=== PATIENT | female | born 1960 | race Caucasian/White ===

== ENCOUNTER → 2020-09-16 09:50 | Outpatient (CLI) | payer OTHER, SELFPAY ==
--- NOTE | 2020-09-16 | PATH_ITS ---
Note [facility] Accession Number: [id number] TESTS RESULT FLAG UNITS REF RANGE LAB Clinician Provided Cytology Information No. of containers..00 Previously Prepared Cytology Slide 35 Unknown Storage/container code(s) 01 LEFT THYROID MASS Clinician ICD10: E04.1 DIAGNOSIS: 01 LEFT THYROID MASS NEGATIVE FOR MALIGNANT CELLS. [place] CATEGORY II. SPECIMEN CONSISTS OF BENIGN FOLLICULAR CELLS, PRESENT AT MACROFOLLICLES, CONSISTENT WITH A BENIGN FOLLICULAR NODULE. Pathologist ICD10: E04.1 01 Procedure: Thyroid ultrasound Findings: Right thyroid lobe neasures 5,9 x 22 x 2.4 cm. Tiny lateral neasuring 0.3 cm. The left thyroid lobe measures 5.9 x 2.1 x 22 cm. There Is a nodule within frie left thyroid lobe. that is predominantly solid (2) measuring 1.6 x x 1.6 cm. It is heterogeneous but slightly hypoechoic (2), wider than tall (0),with smooth marrgins (O) and no calcifications (O) (TR 4). The isthmus measures 0.6 cm. No other thyroid nodules identified. No suspicious masses or abnormal enlarged lymph nodes in the overlying soft tissues. IMPRESSION: 1.6 cm predominantly solid nodule within the left thyroid lobe (TR 4). Fine-needle aspirate suggested as per ACR recommendations. 01 Elsy Warren MD, Pathologist NPI- [id number] 01 Alphonse Bryan, Patient Ambassador ([facility]) 01 30 CC, RED, CLEAR RECIEVED: IN CYTOLYT WITH 5 ALCOHOL FIXED AND 5 QUICK STAINED SLIDES ALSO 1 RNA VIAL WAS RECEIVED FOR FURTHER TESTING. /[facility] 09/17/2020 0628 Local FLAG LEGEND: L-Low Normal,H-High Normal,LL-Alert Low,HH-Alert High <-Panic Low,>-Panic High,A-Abnormal,AA-Critical Abnormal Performed at: 01 =[facility] [address] [place] [address] [address], [place] [address] Luke Marcano MD, Performed at: 01 [facility] [address] [place] [address] [address], [place], [place] [id number] MD Luke Marcano MD Phone: [phone]
--- NOTE | 2020-09-16 | DI.US.S_ITS ---
PROCEDURE: US FINE NEEDLE ASPIRATION INDICATIONS: LEFT THYROID NODULE TECHNIQUE: The indications, alternatives, benefits, risks, and complications of the procedure were explained to the patient. Written informed consent was obtained and placed in the chart. The thyroid region was examined sonographically and a site was chosen for ultrasound guided percutaneous sampling. The skin was prepared and draped in the usual fashion, and anesthetized with 1% lidocaine infiltrated from the skin down to the thyroid gland. Multiple passes were then performed, with contents emptied into an appropriate pathology specimen container. A bandage was applied to the area of access at completion of the study. COMPARISON: None. FINDINGS: Location(s) of lesion(s) sampled: Left thyroid lobe [place]: 25 gauge hypodermic needles. Number of passes: 6 Medications: 1% lidocaine for local anaesthesia. Complications: None. IMPRESSION: Successful ultrasound-guided thyroid nodule fine needle aspiration, with cytology results pending. Please see chart below for management recommendations based on cytology results. [place] [facility] ReportingRecommendationsNon-diagnostic* Repeat US-guided FNA, with on-site cytology evaluation if possible. * Repeated non-diagnostic nodules without high suspicion US features: close observation vs surgical consult. * Consider surgery if nodule has high suspicion US features, grows >20% in 2 dimensions on followup, or patient has clinical risk factors for malignancy. Benign* If nodule has high suspicion US features: repeat US and FNA within 12 months. * If nodule has low to intermediate suspicion US features: repeat US at 12-24 months. If nodule grows (20% increase in at least 2 dimensions, with minimal increase of 2 mm or >50% change in volume), or development of new suspicious US features, then repeat FNA or continue followup. * If nodule has very low suspicion US features: followup US at >24 months. Atypia of undetermined significance, follicular lesion of undetermined significanceRepeat FNA, molecular testing, followup US, or surgical consult.Follicular neoplasm, suspicious for follicular neoplasmSurgical consult; also consider molecular testing. Suspicious for malignancySurgical consult.MalignantSurgical consult. Dictated by: Roberth Parra M.D. on 09/16/2020 at 14:22 Approved by: Roberth Parra M.D. on 09/16/2020 at 14:22
== END ==
PROVIDERS: Family Provider Naturopath; PCP Naturopath; Referring Provider Internal Medicine; Visit Provider Internal Medicine
DX: E04.1 Nontoxic single thyroid nodule (principal)
CPT/HCPCS: 10005

== ENCOUNTER → 2023-05-08 10:52 | Outpatient (CLI) | payer OTHER, SELFPAY ==
--- NOTE | 2023-05-08 | DI.MRI.S_ITS ---
PROCEDURE: MR KNEE RT WO CON INDICATIONS: RIGHT KNEE PAIN/MEDIAL COLLATERAL LIGAMENT INJURY TECHNIQUE: Noncontrast sagittal PD fast spin echo and T2 fast spin echo with fat saturation, sagittal 3-D FLASH with fat saturation; coronal T1 spin echo and PD fast spin echo with fat saturation, and axial PD fast spin echo with fat saturation through the knee. COMPARISON: None. FINDINGS: Image quality: Excellent. Menisci: Peripheral displacement of medial meniscus bowing medial collateral ligament is seen. Complex oblique tear involving posterior horn of medial meniscus is seen extending to superior articulating surface. Low-grade partial-thickness tear involving posterior medial meniscal root ligament is also seen. The lateral meniscus is intact. Cruciate ligaments: The anterior and posterior cruciate ligaments appear intact. Medial structures: The medial collateral ligament appears mildly thickened. The posterior oblique ligament, semimembranosus tendon insertions, oblique popliteal ligament, and meniscocapsular junction appear intact. Visualized portions of the pes anserinus tendons appear normal. No abnormal bursal fluid. Lateral structures: The lateral collateral ligament, long and short heads of the biceps femoris tendon appear intact. The popliteus tendon is thickened suggestive of tendinosis. Iliotibial band appears normal. Anterior structures: The quadriceps and patellar tendons appear intact. Patellar alignment is normal. No femoral trochlear dysplasia or ventral trochlear prominence. No edema in the infrapatellar fat pad. Bones and cartilage: No bone marrow contusions or fractures. [id number] tricompartmental osteoarthritis and chondromalacia is seen more notably in medial femoral tibial compartment. Joint space: There is moderate to large knee joint fluid. There is a 1.6 x 1.7 x 3.7 cm Hernandez's cyst. Normal appearing synovial plicae are incidentally noted. IMPRESSION: 1. Complex oblique tear involving posterior horn of medial meniscus extending to superior articulating surface. Low-grade partial-thickness tear involving posterior medial meniscal root ligament. The lateral meniscus is intact. 2. The cruciate ligaments are intact. 3. Low-grade MCL sprain. Proximal popliteus tendinosis. 4. [id number] tricompartmental osteoarthritis and chondromalacia most notably in medial femoral tibial compartment. No fracture or dislocation. 5. Moderate to large joint effusion and a small Hernandez's cyst as above. No gross loose bodies. Dictated by: Kwaku Rodriguez M.D. on 05/08/2023 at 13:25 Approved by: Kwaku Rodriguez M.D. on 05/08/2023 at 13:27
== END ==
PROVIDERS: Family Provider Naturopath; PCP Naturopath; Referring Provider Orthopaedic Surgery; Visit Provider Orthopaedic Surgery
DX: S83.231A Complex tear of medial meniscus, current injury, right knee, initial encounter (principal); S83.411A Sprain of medial collateral ligament of right knee, initial encounter; M17.11 Unilateral primary osteoarthritis, right knee; M94.261 Chondromalacia, right knee; M25.561 Pain in right knee; M25.461 Effusion, right knee; M71.21 Synovial cyst of popliteal space [Baker], right knee
CPT/HCPCS: 73721

== ENCOUNTER → 2023-06-21 10:12 | Outpatient (CLI) | payer OTHER, SELFPAY | PROVIDERS: Family Provider Naturopath; PCP Naturopath; Referring Provider Orthopaedic Surgery; Visit Provider Orthopaedic Surgery | DX: Z01.818 Encounter for other preprocedural examination (principal) | CPT/HCPCS: 93005; 93010 ==

== ENCOUNTER → 2024-10-18 10:16 | Outpatient (CLI) | payer OTHER, SELFPAY ==
--- NOTE | 2024-10-18 10:18 | DI.MRI.S_ITS ---
PROCEDURE: MR SHOULDER LT WO CON INDICATIONS: Strain of tendon of left shoulder TECHNIQUE: Noncontrast oblique coronal T2 fast spin echo with fat saturation, oblique sagittal T1 spin echo and T2 fast spin echo with fat saturation, axial T1 spin echo and T2 fast spin echo with fat saturation through the shoulder. COMPARISON: [facility], CR, XR SHOULDER 2+ VIEWS LEFT, 08/02/2024, 13:45. FINDINGS: Image quality: Diagnostic Rotator cuff: Bulk: No significant atrophy Teres minor: Intact Supraspinatus: Moderate tendinopathy and partial-thickness articular sided tears in the mid and distal tendon. Small bursal sided defect also seen near the insertion. Infraspinatus: Moderate tendinopathy and small articular sided defects are seen. Subscapularis: There is moderate to severe thickening. Small partial-thickness defect seen at along the articular surface Bones and bursae: GH joint: There is significant joint effusion and advanced degenerative changes. Intra-articular debris is present. Effusion extends to the anterior bursal spaces. Advanced cartilage loss and subchondral geodes are present. AC joint: [id number]-px-qymlympx degenerative changes Humeral head: Likely reactive edema is seen in parts of the humeral head. Questionable posterior humeral head deformity is present Scapula and acromion: Likely reactive edema along the glenoid Bursa: Mild bursal edema Capsule: Labrum: Diffusely attenuated. Suspected superior labral tear also seen Long head biceps tendon: Intra-articular tendinopathy is seen. Joint effusion extends along the bicipital groove IGHL: Axillary pouch is distended with fluid Rotator interval: Distended with edema Soft tissues: No axillary adenopathy. Lungs are not well seen. IMPRESSION: Advanced degenerative changes of the glenohumeral joint with significant cartilage loss and subchondral geodes/edema. There is a moderate joint effusion with intra-articular debris, also extending to the bursal spaces and bicipital groove. Mild to moderate acromioclavicular degenerative changes. Possible posterior humeral head deformity, possibly degenerative or from prior trauma for example from dislocation. Diffuse attenuation of the labrum, likely degenerative . Possible superior labral tear. Adjacent long head biceps tendinopathy. Overall moderate grade tendinopathy and partial-thickness tears of the rotator cuff Dictated by: Juan Solomon M.D. on 10/19/2024 at 6:36 Approved by: Juan Solomon M.D. on 10/19/2024 at 6:42
== END ==
LOC: MRI 10:17
PROVIDERS: Family Provider Naturopath; PCP Naturopath; Referring Provider Orthopaedic Surgery; Visit Provider Orthopaedic Surgery
DX: S46.012A Strain of muscle(s) and tendon(s) of the rotator cuff of left shoulder, initial encounter (principal); M25.412 Effusion, left shoulder; X58.XXXA Exposure to other specified factors, initial encounter
CPT/HCPCS: 73221

== ENCOUNTER → 2024-12-02 10:12 | Outpatient (CLI) | payer OTHER, SELFPAY ==
--- NOTE | 2024-12-02 10:14 | DI.MRI.S_ITS ---
PROCEDURE: MR KNEE LT WO CON INDICATIONS: Cyst lt knee TECHNIQUE: Noncontrast sagittal PD fast spin echo and T2 fast spin echo with fat saturation, sagittal 3-D FLASH with fat saturation; coronal T1 spin echo and PD fast spin echo with fat saturation, and axial PD fast spin echo with fat saturation through the knee. COMPARISON: [facility] [place], RG, KNEE MIN 4VW (LT), 10/28/2024, 11:31. [facility], MR, MR KNEE RT WO CON, 05/08/2023, 11:22. FINDINGS: Image quality: Excellent. Menisci: In the medial meniscus, there is complex tear of the posterior horn, extending to the meniscus body. Marked extrusion of the medial meniscus body. There is a small parameniscal cyst about the posterior horn. In the lateral meniscus, there is a mildly complex tear with predominant horizontal component in the posterior horn, extending into the meniscus body. No extrusion of the medial meniscus body. Cruciate ligaments: The anterior and posterior cruciate ligaments appear intact. Medial structures: The medial collateral ligament appears intact. The posterior oblique ligament, semimembranosus tendon insertions, oblique popliteal ligament, and meniscocapsular junction appear intact. Visualized portions of the pes anserinus tendons appear normal. No abnormal bursal fluid. Lateral structures: The lateral collateral ligament, long and short heads of the biceps femoris tendon appear intact. The popliteus tendon appears normal; the popliteofibular ligament appears intact. The posterosuperior and anteroinferior popliteomeniscal fascicles appear intact. The arcuate and fabellofibular ligaments appear intact, on either side of the lateral inferior geniculate artery. Iliotibial band appears normal. Anterior structures: The quadriceps tendon is unremarkable. Mild tendinosis of the proximal patellar tendon. Mild lateral tilt of the patella. The medial and the lateral patellofemoral ligaments are intact. Bones and cartilage: Multifocal mild chondral irregularity of the patella, with mild subchondral marrow edema. Mild chondral irregularity of the medial trochlea. In the medial compartment, there is large area of complete chondral denudation in the weight-bearing portion of the medial femoral condyle, and in the medial tibial plateau. There is mild subchondral marrow edema in the peripheral aspect of the medial femoral condyle and the medial tibial plateau, reactive. In the lateral compartment, there is small area high-grade chondral loss in the nonweightbearing portion of the lateral femoral condyle. There is mild chondral loss in the weight-bearing portion of the lateral femoral condyle, and of the lateral tibial plateau. No acute fracture. Joint space: Moderate knee effusion with synovitis. No intra-articular body. Large, partially ruptured popliteal cyst. Popliteal vasculature is unremarkable. IMPRESSION: 1. Tear of the meniscus, medial greater than lateral. Mild reactive marrow edema in the medial femoral condyle and the medial tibial plateau. 2. Severe, medial compartment predominant chondrosis . 3. Moderate knee effusion with synovitis. 4. Large, partially ruptured popliteal cyst. Dictated by: Rica Velazquez M.D. on 12/02/2024 at 13:56 Approved by: Rica Velazquez M.D. on 12/02/2024 at 14:07
== END ==
PROVIDERS: Family Provider Naturopath; PCP Naturopath; Referring Provider Orthopaedic Surgery; Visit Provider Orthopaedic Surgery
DX: S83.232A Complex tear of medial meniscus, current injury, left knee, initial encounter (principal); S83.272A Complex tear of lateral meniscus, current injury, left knee, initial encounter; M94.262 Chondromalacia, left knee; M25.462 Effusion, left knee; M66.0 Rupture of popliteal cyst
CPT/HCPCS: 73721

== ENCOUNTER → 2024-12-06 11:20 | Outpatient (CLI) | payer OTHER, SELFPAY ==
[2024-12-06 12:18] LABS: Add Manual Diff / Slide Review NO; Basophils Absolute Auto 0 /uL (0-100); Basophils Percent Auto 0.9 % (0-2); Eosinophils Absolute Auto 0 /uL (0-450); Eosinophils Percent Auto 0.7 % (2-4); Hematocrit 38.4 % (36-46); Hemoglobin 13.1 g/dL (12.0-16.0); Lymphocytes Absolute Auto 1300 /uL (1100-4500); Lymphocytes Percent Auto 35.1 % (25-40); Mean Corpuscular Hemoglobin 32.9 PG (26-34); Mean Corpuscular Volume 96.8 fL (80-100); Monocytes Absolute Auto 300 /uL (0-900); Monocytes Percent Auto 7.8 % (3-14); Neutrophils Absolute Auto 2100 /uL (1500-7000); Neutrophils Percent Auto 55.5 % (50-75); Platelet Count 278 X10^3/uL (150-400); Red Blood Cell Count 3.96 X10^6/uL (4.0-5.2); Red Cell Distribution Width 14.3 % (11.6-14.8); White Blood Cell Count 3.7 X10^3/uL (4.5-11.0)
--- NOTE | 2024-12-06 12:18 | EKG_ITS ---
[facility] [id number] [address] [place] [address] Test Date: 2024-12-06 Pat Name: Kailyn Osborne Department: Room: Gender: Female [employer]: : 1960 Requested By: Order Number: [id number] Reading MD: George Garcia Measurements Intervals [place] Rate: 64 P: 61 AK: 140 QRS: 50 QRSD: 98 T: 62 QT: 424 QTc: 437 Interpretive Statements Normal sinus rhythm Electronically Signed On 12-10-2024 20:09:12 PDT by George Garcia
[2024-12-06 12:32] LABS: Hemoglobin A1C% w Est Avg Glu 4.8 % (4.0-6.0)
[2024-12-06 12:37] LABS: BUN Creatinine Ratio 20.6 (6-22); Blood Urea Nitrogen 14 mg/dL (7-17); Calcium 9.9 mg/dL (8.4-10.2); Carbon Dioxide 28 mmol/L (22-32); Chloride 101 mmol/L (98-107); Estimated Glomerular Filt Rate > 60 mL/min (>60); Glucose 93 mg/dL (80-110); HEMOLYSIS < 15 (0-50); Potassium 4.4 mmol/L (3.4-5.1); Sodium 138 mmol/L (137-145)
[2024-12-06 12:54] LABS: Appearance Urine UA CLEAR; Bilirubin Urine UA NEGATIVE (NEGATIVE); Color Urine UA YELLOW; Glucose Urine UA NEGATIVE (Negative); Ketones Urine UA NEGATIVE (NEGATIVE); Leukocyte Esterase Urine UA NEGATIVE (NEGATIVE); Nitrite Urine UA NEGATIVE (Negative); Occult Blood Urine UA NEGATIVE (Negative); Protein Urine UA NEGATIVE (Negative); Urine Volume 10mL (spun); Urobilinogen Urine UA 0.2 E.U./dL (0.2); pH Urine UA 6.5 (4.5-8.0)
[2024-12-06 12:56] LABS: Bacteria Urine None Seen; Culture Indicated Urine Cult Not Indicated; RBC Urine None Seen (0-5/HPF); Squamous Epithelial Cell Urine None Seen (0-5/HPF); WBC Urine None Seen (0-5/HPF)
== END ==
LOC: RESP 11:21
PROVIDERS: Family Provider Naturopath; PCP Naturopath; Referring Provider Orthopaedic Surgery; Visit Provider Orthopaedic Surgery
DX: Z01.812 Encounter for preprocedural laboratory examination (principal); Z01.818 Encounter for other preprocedural examination; R73.9 Hyperglycemia, unspecified; N39.0 Urinary tract infection, site not specified
CPT/HCPCS: 36415; 80048; 81001; 83036; 85025; 93005